=== PATIENT | male | born 1995 | race Asian ===

== ENCOUNTER 2016-11-17 16:47 | Emergency (ER) | payer OTHER ==
[~2016-11-17] VITALS: Ht 175.3 cm; Wt 113.4 kg
[2016-11-17 18:48] LABS: HIV-1 p24 ANTIGEN NON REACTIVE (NONREACTIVE); HIV-1/2 ANTIBODY NON REACTIVE (NONREACTIVE)
[2016-11-17 19:33] VITALS: BP 129/80
[2016-11-18 10:21] LABS: *RAPID PLASMA REAGIN QUAL Non Reactive (Non Reactive)
[2016-11-18 16:03] LABS: HEPATITIS C VIRUS AB 0.1 s/co ratio (0.0-0.9)
== END 2016-11-17 19:33 | disposition home or self-care (01) ==
LOC: ER 16:48
DX: S61.200A Unspecified open wound of right index finger without damage to nail, initial encounter (principal); K75.9 Inflammatory liver disease, unspecified; W46.0XXA Contact with hypodermic needle, initial encounter; Y93.89 Activity, other specified; Y92.89 Other specified places as the place of occurrence of the external cause; Y99.0 Civilian activity done for income or pay
CPT/HCPCS: 36415; 80074; 86592; 99284; A4606; Z7610